=== PATIENT | male | born 1985 ===

== ENCOUNTER 2023-10-18 19:46 | Emergency (ER) | payer SELFPAY ==
[2023-10-18 20:03] VITALS: BP 148/79; PULSE 71; RESP 17; TEMP 36.7; O2SAT 98; BMI 30.1
[2023-10-18 21:59] VITALS: RESP 18; O2SAT 96
[2023-10-18] MEDS: oxyCODONE-APAP 5-325 mg Tablet 2 TAB PO (21:59)
[2023-10-18 22:09] VITALS: BP 136/86; PULSE 69; O2SAT 98
--- NOTE | 2023-10-19 15:28 | W.ED.DENTAL ---
HPI - Dental/Oral General: Chief complaint: Dental/Oral Stated complaint: mouth pain Time Seen by Provider: 10/18/23 20:39 History of Present Illness: 38 year old male gentleman with painful sores in his mouth and on his tongue for the last few days. He had these previously a few years ago and was prescribed an oral solution for them. He notes painful swallowing, painful eating. No fever. No other complaints. Associated symptoms: Reports odynophagia; Denies fever(s) Review of Systems Const: Denies: fever(s) or chills Eyes: Denies: change in vision ENMT: Reports: throat pain, odynophagia, mouth pain and oral sores; Denies: enlarged tonsils, hoarseness or swelling of lips/tongue Card: Denies: chest pain Resp: Denies: dyspnea GI: Denies: vomiting Physical Exam Const: COMMON NORMALS: no acute distress GENERAL APPEARANCE: cooperative; not ill appearing HENMT: COMMON NORMALS: normocephalic, atraumatic, external ears normal and Normal external nose present HEAD & SCALP: normocephalic and atraumatic FACE & SINUS: normal facial exam, sinuses nontender and face symmetric; no erythema and no edema NOSE: Normal external nose present and Normal nares present EXTERNAL EAR: Yes external ears normal MOUTH: lip normal, Abnormal oral and palatal mucosa present ulceration (multiple); no condyloma, no nodules and no vesicles and tongue abnormal; no drooling and no muffled voice TEETH & GINGIVA: Yes fair dentition Eye: COMMON NORMALS: Equal, round and reactive pupils present and EOMs intact bilaterally PUPIL: Yes Equal, round and reactive pupils present Chest: CHEST: Yes Symmetrical chest wall rise Resp: COMMON NORMALS: normal respiratory effort and No retractions Course Vital Signs: Vital signs: Vital Signs Temperature 98.1 F 10/18/23 20:03 Pulse Rate 69 10/18/23 22:09 Respiratory Rate 18 10/18/23 21:59 Blood Pressure 136/86 10/18/23 22:09 Pulse Oximetry 98 10/18/23 22:09 Oxygen Delivery Me thod Room Air 10/18/23 20:03 MDM - Dental/Oral Medical Decision Making Multiple aphthous ulcers in the patients mouth, on the palate, and on the tongue. He is prescribed magic mouthwash for this. One part diphenhydramine, one part maalox, one part viscous lidocaine. He may switch and swallow or swish and spit. He has given 2 doses of pain medication here, one now and one for home. Outpatient follow up. No radiology studies performed this visit Discharge Plan Discharge Patient Disposition: Home Clinical Impression: Aphthous ulcer Condition: Stable Discharge Orders: Discharge ED (Routine); Ordered 10/18/23 Ordered By: Jimmie Calloway Patient Instructions: Oral Mucositis (ED), Opioid Safety, Pain Management Activity Restrictions/Additional Instructions: Fill the medication at the pharmacy. Use as directed. Follow-up with your doctor Coding Level of Care Code ED Clinical Quality Assurance Associate for Albina Castro
== END 2023-10-18 22:11 | disposition home or self-care (01) ==
PROVIDERS: Emergency Provider Emergency Medicine
DX: K12.0 Recurrent oral aphthae (principal)
CPT/HCPCS: 99284